=== PATIENT | male | born 1990 | race Caucasian/White ===

== ENCOUNTER 2018-10-15 00:54 | Emergency (ER) | payer SELFPAY ==
[2018-10-15] MEDS ORDERED: hydrALAZINE 25 MG Tab PO ONE (00:58)
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
== END 2018-10-15 01:48 ==
LOC: JD.ED 00:54
DX: F15.10 Other stimulant abuse, uncomplicated (principal); F41.9 Anxiety disorder, unspecified; F10.10 Alcohol abuse, uncomplicated; R45.6 Violent behavior
CPT/HCPCS: 80306; 99283; A9270

== ENCOUNTER 2020-08-20 16:22 | Emergency (ER) | payer MEDICAID ==
--- NOTE | 2020-08-20 17:02 | EDM.PDOC ---
ED HPI GENERAL MEDICAL PROBLEM - General Chief Complaint: Upper Extremity Injury/Pain Stated Complaint: POSSIBLE BLOOD CLOT IN RT ARM Time Seen by Provider: 08/20/20 16:49 Source of Information: Reports: Patient, Police (pt is incarcerated, here with [place] [facility] staff currently), RN Notes Reviewed History Limitations: Reports: No Limitations - History of Present Illness INITIAL COMMENTS - FREE TEXT/NARRATIVE: Patient is a 30-year-old male who presents via [facility] department for the evaluation of a possible right arm blood clot. Patient states he has a history of blood clots, he thinks that he might be on Plavix, aspirin and Coumadin however he is not entirely sure. There is an area on his posterior right forearm, that is red, swollen, tender, that feels like blood clots he has had in the past. Patient notes he has been taking his blood thinners as prescribed. Patient is a poor historian, and does not offer much for history. He states he does not have any fevers or chills, cough or shortness of breath. Right Arm Pain Score (Numeric/FACES): 10 - Related Data Allergies Allergy/AdvReac Type Severity Reaction Status Date / Time No Known Allergies Allergy Verified 08/20/20 16:50 Home Meds: Home Meds Aspirin [Halfprin] 81 mg PO DAILY 08/20/20 [History] Clopidogrel Bisulfate [Plavix] 75 mg PO DAILY 08/20/20 [History] Warfarin [Coumadin] 0 mg PO DAILY 08/20/20 [History] Past Medical History HEENT History: Reports: Other (See Below) Other HEENT History: Blind in Left Eye Cardiovascular History: Reports: Blood Clots/VTE/DVT, Hypertension Neurological History: Reports: CVA, Other (See Below) Other Neuro History: Brain Tumor Psychiatric History: Reports: Addiction, Anxiety, Depression Endocrine/Metabolic History: Reports: Hypothyroidism - Past Surgical History Cardiovascular Surgical History: Reports: Other (See Below) Other Cardiovascular Surgeries/Procedures: Surgery to remove blood clot Social & Family History - Tobacco Use Tobacco Use Status *Q: Current Every Day Tobacco User Years of Tobacco use: 15 Packs/Tins Daily: 1 - Caffeine Use Caffeine Use: Reports: Coffee, Energy Drinks, Soda, Tea - Recreational Drug Use Recreational Drug Use: No Review of Systems - Review of Systems Review Of Systems: Comprehensive ROS is negative, except as noted in HPI. ED EXAM, GENERAL - Physical Exam Exam: See Below Exam Limited By: No Limitations General Appearance: Alert, WD/WN, No Apparent Distress Respiratory/Chest: No Respiratory Distress, Lungs Clear, Normal Breath Sounds, No Accessory Muscle Use, Chest Non-Tender Cardiovascular: Normal Peripheral Pulses, Regular Rate, Rhythm, No Edema Peripheral Pulses: 2+: Radial (L), Radial (R) Extremities: Normal Range of Motion, Normal Capillary Refill, Arm Pain (Right posterior forearm), Increased Warmth (Right posterior forearm, this area is roughly 3 x 4 cm.), Redness (Right posterior forearm) Neurological: Alert, Oriented, Normal Cognition, No Motor/Sensory Deficits Psychiatric: Normal Affect, Normal Mood Skin Exam: Warm, Dry, Intact, No Rash, Erythema (Right posterior forearm), Increased Warmth (Right posterior forearm) Course - Vital Signs Last Recorded V/S: Last Vital Signs Temp 97.6 F 08/20/20 16:48 Pulse 107 H 08/20/20 16:48 Resp 16 08/20/20 16:48 BP 131/75 08/20/20 16:48 Pulse Ox 99 08/20/20 16:48 - Re-Assessments/Exams Free Text/Narrative Re-Assessment/Exam: 08/20/20 17:03 Patient presents to the ED for evaluation of a possible blood clot in his right posterior forearm. For today's purposes we will get ultrasound of the area for evaluation. 08/20/20 17:53 I was made aware by our certified histologic technician that the patient was very noncompliant, he would not let him use the gel, and would not let him ultrasound the area of concern, he will send over what he got of the scan; and we will mitigate his risk from that. I will speak with Dr. Merlos regarding the images. 08/20/20 18:26 The patient's ultrasound report demonstrates limited right upper quadrant venous ultrasound showing no venous thrombosis of the internal jugular through the axillary vein. I did discuss these findings with Dr. Merlos, and he states that because there is no blood clot more distal to the affected area, that it is unlikely that this 1 will break free and cause him further issues. He should continue taking other medications as prescribed, use some heat to the area and use Tylenol ibuprofen for pain. Departure - Departure Time of Disposition: 18:26 Disposition: Home, Self-Care 01 Condition: Good Clinical Impression: Right arm pain, History of blood clots, Thrombophlebitis arm - Discharge Information *PRESCRIPTION DRUG MONITORING PROGRAM REVIEWED*: No *COPY OF PRESCRIPTION DRUG MONITORING REPORT IN PATIENT VAUGHN: No Instructions: Thrombophlebitis Referrals: PCP,None [Primary Care Provider] - Forms: ED Department Discharge Additional Instructions: You were evaluated in the ER today for your suspected blood clot in your right arm. A limited ultrasound was performed, and demonstrates no blood clot distal to the area of concern on your right forearm. I did discuss these findings with the doctor on shift, and it is unlikely that there is a blood clot in the area, due to you being on blood thinners and aspirin. He believes this is more of a thrombophlebitis in nature. Treatment for this would be Tylenol or ibuprofen every 6 hours as needed for further pain relief. Use heat packs to the area to provide more pain relief. Please continue to take all other medications as previously prescribed. Please return to the ER at any time if symptoms change or worsen. Sepsis Event Note (ED) - Evaluation Sepsis Screening Result: No Definite Risk - Focused Exam Vital Signs: Vital Signs Temp Pulse Resp BP Pulse Ox 08/20/20 16:48 97.6 F 107 H 16 131/75 99
--- NOTE | 2020-08-20 18:11 | US ---
Right upper extremity venous ultrasound: Duplex and color Doppler evaluation was obtained of the right internal jugular, subclavian and axillary vein. Complications: Patient refused further imaging distal to the axillary vein. Findings: Within the visualized veins, no findings of venous thrombosis is seen. Impression: 1. Limited right upper quadrant venous ultrasound showing no venous thrombosis from the internal jugular through the axillary vein. Diagnostic code #2
== END 2020-08-20 18:45 | disposition home or self-care (01) ==
LOC: JD.ED 16:22
DX: I80.8 Phlebitis and thrombophlebitis of other sites (principal); Z86.2 Personal history of diseases of the blood and blood-forming organs and certain disorders involving the immune mechanism; I10 Essential (primary) hypertension; Z72.0 Tobacco use; Z79.82 Long term (current) use of aspirin; Z79.01 Long term (current) use of anticoagulants; Z79.02 Long term (current) use of antithrombotics/antiplatelets; Z86.72 Personal history of thrombophlebitis
CPT/HCPCS: 93971-26-RT; 93971-RT; 99283; 99284-25